=== PATIENT | female | born 1995 | race African-American/Black ===

== ENCOUNTER 2017-11-29 15:24 | Emergency (ER) | payer SELFPAY ==
[~2017-11-29] VITALS: Ht 160 cm; Wt 56.8 kg
[2017-11-29 16:28] LABS: URINE BILIRUBIN - DIPSTICK NEGATIVE (NEGATIVE); URINE BLOOD DIPSTICK TRACE-LYSED (NEGATIVE); URINE COLOR YELLOW; URINE GLUCOSE - DIPSTICK NEGATIVE (NEGATIVE); URINE KETONE NEGATIVE (NEGATIVE); URINE LEUK ESTERASE NEGATIVE (NEGATIVE); URINE NITRITE - DIPSTICK NEGATIVE (Negative); URINE PROTEIN - DIPSTICK NEGATIVE (NEG-TRACE); URINE SPECIFIC GRAVITY >=1.030; URINE UROBILINOGEN - DIPSTICK 0.2 E.U./dL (0.2)
[2017-11-29 16:29] LABS: HEMATOCRIT 40.7 % (37.0-47.0); HEMOGLOBIN 13.6 g/dl (12.0-16.0); IMMATURE GRANULOCYTES 0.2 % (0.0-5.0); MEAN CELL VOLUME 88.9 fL CALC (80.0-100.0); MEAN CORPUSCULAR HGB 29.7 pG CALC (26.0-32.0); MEAN CORPUSCULAR HGB CONC 33.4 g/L CALC (32.0-36.0); NEUT# 2.41 thou/uL (2.00-7.15); RED BLOOD COUNT 4.58 mill/uL (4.20-5.60); RED CELL DISTRI WIDTH 15.1 % (11.5-15.5)
[2017-11-29 16:30] LABS: URINE CLARITY CLEAR
[2017-11-29 16:48] LABS: ALBUMIN 4.5 g/dL (3.2-5.0); ALKALINE PHOSPHATASE 57 u/l (38-126); ANION GAP 14 (6-22 (CALC)); BILIRUBIN, TOTAL 0.4 mg/dL (0.0-1.4); BUN 12 mg/dL (7-17); BUN/CREATININE RATIO 17 (12-20 (CALC)); CARBON DIOXIDE 26 mmol/l (22-30); CHLORIDE 107 mmol/l (95-108); CREATININE 0.7 mg/dL (0.5-1.0); GFR > 60 ML/MIN (>=60 (CALC)); GFR FOR AFR.AMER. > 60 ML/MIN (>=60 (CALC)); LIPASE 106 u/l (23-300); POTASSIUM 4.1 mmol/l (3.5-5.1); SGOT/AST 18 u/l (14-36); SODIUM 142 mmol/l (137-146); TOTAL PROTEIN 7.9 g/dL (6.3-8.2)
[2017-11-29] MEDS ORDERED: ONDANSETRON4 MG PO (17:02)
[2017-11-29 17:30] VITALS: BP 116/67
== END 2017-11-29 17:58 | disposition home or self-care (01) | DRG 392 ==
LOC: ED 15:24
PROVIDERS: Family Medicine
DX: K52.9 Noninfective gastroenteritis and colitis, unspecified (principal); F17.210 Nicotine dependence, cigarettes, uncomplicated

== ENCOUNTER 2019-02-15 14:10 | Emergency (ER) | payer SELFPAY ==
[~2019-02-15] VITALS: Ht 160 cm; Wt 40.0 kg
[~2019-02-15 14:10] MED LIST: ONDANSETRON4 MG PO
[2019-02-15 14:13] VITALS: BP 121/77
== END 2019-02-15 15:30 | disposition left against medical advice (07) | DRG 951 ==
LOC: ED 14:10 → LWOBS 15:30
DX: Z53.21 Procedure and treatment not carried out due to patient leaving prior to being seen by health care provider (principal)

== ENCOUNTER 2021-04-02 12:57 | Emergency (ER) | payer MEDICAID ==
[~2021-04-02] VITALS: Ht 160 cm; Wt 43.6 kg
[2021-04-02 13:41] LABS: HEMATOCRIT 41.5 % (37.0-47.0); HEMOGLOBIN 13.5 g/dl (12.0-16.0); MEAN CORPUSCULAR HGB 31.6 pG CALC (26.0-32.0); MEAN CORPUSCULAR HGB CONC 32.5 g/dL CAL (32.0-36.0); NEUT# 0.9 thou/uL (2.00-7.15); RED BLOOD COUNT 4.27 mill/uL (4.20-5.60); RED CELL DISTRI WIDTH 13.3 % (11.5-15.5)
[2021-04-02 13:45] LABS: MEAN CELL VOLUME 97.2 fL CALC (80.0-100.0)
[2021-04-02 13:54] LABS: ALBUMIN 3.9 g/dL (3.2-5.0); ALKALINE PHOSPHATASE 51 u/l (38-126); ANION GAP 8 (6-22 (CALC)); BILIRUBIN, TOTAL 0.5 mg/dL (0.0-1.4); BUN 11 mg/dL (7-17); BUN/CREATININE RATIO 16 (12-20 (CALC)); CARBON DIOXIDE 29 mmol/l (22-30); CHLORIDE 105 mmol/l (95-108); CREATININE 0.7 mg/dL (0.5-1.0); GFR > 60 ML/MIN (>=60 (CALC)); GFR FOR AFR.AMER. > 60 ML/MIN (>=60 (CALC)); POTASSIUM 4.6 mmol/l (3.5-5.1); SGOT/AST 31 u/l (14-36); SODIUM 137 mmol/l (137-146); TOTAL PROTEIN 7.2 g/dL (6.3-8.2)
[2021-04-02] MEDS ORDERED: MECLIZINE25 MG PO (16:06)
[2021-04-02 16:11] VITALS: BP 91/63
== END 2021-04-02 16:11 | disposition home or self-care (01) ==
LOC: ED 12:57
PROVIDERS: Family Medicine
DX: R07.9 Chest pain, unspecified (principal); R42 Dizziness and giddiness; R51.9 Headache, unspecified; F17.210 Nicotine dependence, cigarettes, uncomplicated; Z20.822 Contact with and (suspected) exposure to COVID-19